=== PATIENT | male | born 1940 | race Caucasian/White ===

== ENCOUNTER 2023-11-28 19:40 | Emergency (ER) | payer OTHER ==
[~2023-11-28] VITALS: Ht 180.3 cm; Wt 87.2 kg
[~2023-11-28 19:40] MED LIST: CARBIDOPA-LEVO1 EAC5 PO
--- OUTSIDE RECORDS SUMMARY | 2023-11-28 19:44 | XMS ---
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 Ehsan has no Care Guidelines for this patient. [facility]12 MO[facility] NOTE: Visits indicate total known visits. ED/C VISIT TRACKING (12 MO.) 11/28/2023 19:[address] [facility] [place] TYPE: Emergency COMPLAINT: - DIZZINESS 11/25/2023 18:[address] [facility] [place] TYPE: Emergency COMPLAINT: - WEAKNESS DIAGNOSES: - Homelessness unspecified - Other care home (current) drug therapy - Parkinson's disease without dyskinesia, without mention of fluctuations - Weakness INPATIENT VISIT TRACKING (12 MO.) No inpatient visits to display in this time frame [id number]
[2023-11-28 19:54] LABS: BASOPHILS 0.9 % (0-2); EOSINOPHILS 5.1 % (0-6); HEMATOCRIT 40.3 % (35.0-50.0); HEMOGLOBIN 13.2 g/dL (12.0-18.0); LYMPHOCYTES 31.4 % (24-44); MCH 30.1 (27-36); MCHC 32.7 g/dl (30-36); MCV 91.9 fl (81-99); NEUTROPHILS 53.6 % (39-80); PLATELET COUNT 226 K/uL (140-440); RBC 4.38 M/ul (4.3-5.7); RDW 14.9 (10.5-15.0)
[2023-11-28 20:13] LABS: ALBUMIN 3.5 g/dL (3.4-5.0); ALBUMIN/GLOBULIN RATIO 0.92 (1.1-2.4); BUN/CREATININE RATIO 20.83 (6.0-28.6); CALCIUM 8.5 mg/dL (8.5-10.1); CREATININE, SERUM 0.96 mg/dL (0.70-1.30); PROTEIN, TOTAL 7.3 g/dL (6.4-8.2)
[2023-11-28 21:49] LABS: BILIRUBIN, URINE NEGATIVE (negative); BLOOD/HGB, URINE NEGATIVE (Negative); KETONE, URINE NEGATIVE (Negative); LEUK ESTERASE, URINE NEGATIVE (negative); NITRITE, URINE NEGATIVE (negative)
[2023-11-28 22:07] VITALS: BP 152/64
--- NOTE | 2023-11-29 21:17 | EKG ---
[facility] [address] [place] [address] Signed Normal sinus rhythm Normal ECG When compared with ECG of 25-NOV-2023 19:38, No significant change was found Confirmed by Napoleon Ott MD () on 11/29/2023 9:17:19 PM Electronically Signed By: NAPOLEON OTT MD 11/29/232116 PATIENT NAME: SABA DE LA O Electrocardiogram DATE OF : 40 PHYSICIAN: NAPOLEON OTT MD REPORT #: [id number] REPORT IS CONFIDENTIAL AND NOT TO BE RELEASED WITHOUT AUTHORIZATION
[2023-11-30] MEDS ORDERED: PERCOCET 5-3251 EACH PO (09:42)
[2023-11-30] MEDS ORDERED: LIDODERM1 EACH TOP (09:42)
[2023-11-30] MEDS ORDERED: ONDANSETRON ODT8 MG PO (09:42)
[2023-11-30] MEDS ORDERED: SENNA8.6 MG PO (09:42)
== END 2023-11-28 23:56 | disposition home or self-care (01) ==
LOC: ED 19:40
PROVIDERS: Family Medicine
DX: R53.1 Weakness (principal); G20.A1 Parkinson's disease without dyskinesia, without mention of fluctuations; F02.80 Dementia in other diseases classified elsewhere, unspecified severity, without behavioral disturbance, psychotic disturbance, mood disturbance, and anxiety; R42 Dizziness and giddiness; Z79.899 Other long term (current) drug therapy
CPT/HCPCS: 36415; 70450; 80053; 81003; 84484; 85025; 93005; 93010; 99284

== ENCOUNTER 2023-12-25 01:31 | Emergency (ER) | payer OTHER, MEDICARE, MEDICAID ==
[~2023-12-25] VITALS: Ht 180.3 cm; Wt 90.0 kg
[~2023-12-25 01:31] MED LIST changes: +LIDODERM1 EACH TOP; +ONDANSETRON ODT8 MG PO; +PERCOCET 5-3251 EACH PO; +SENNA8.6 MG PO
--- OUTSIDE RECORDS SUMMARY | 2023-12-25 01:33 | XMS ---
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 Ehsan has no Care Guidelines for this patient. [facility] MO[facility] T[facility] 4 NOTE: Visits indicate total known visits. ED/C VISIT TRACKING (12 MO.) 12/25/2023 01:[address] [facility] [place] TYPE: Emergency COMPLAINT: - FALL 11/30/2023 08:26 [facility] [place] TYPE: [facility] COMPLAINT: - FALL DIAGNOSES: - Fracture of one rib, left side, initial encounter for closed fracture - Parkinson's disease without dyskinesia, without mention of fluctuations - Pleurodynia - Unspecified fall, initial encounter 11/28/2023 19:40 [facility] [place] TYPE: Emergency COMPLAINT: - DIZZINESS DIAGNOSES: - Dementia in other diseases classified elsewhere, unspecified severity, without behavioral disturbance, psychotic disturbance, mood disturbance, and anxiety - Dizziness and giddiness - 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
[2023-12-25 02:03] LABS: RBC 4.44 M/ul (4.3-5.7)
[2023-12-25 02:05] LABS: EOSINOPHILS 3.1 % (0-6); HEMATOCRIT 40.7 % (35.0-50.0); HEMOGLOBIN 13.5 g/dL (12.0-18.0); LYMPHOCYTES 29.3 % (24-44); MCH 30.3 (27-36); MCHC 33.1 g/dl (30-36); MCV 91.5 fl (81-99); MONOCYTES 10.1 % (0-12); NEUTROPHILS 56.5 % (39-80); PLATELET COUNT 222 K/uL (140-440); RDW 14.3 (10.5-15.0)
[2023-12-25 02:17] LABS: ALBUMIN 3.8 g/dL (3.4-5.0); BILIRUBIN, TOTAL 0.8 ng/dL (0.2-1.0); BUN/CREATININE RATIO 20.47 (6.0-28.6); CALCIUM 9.2 mg/dL (8.5-10.1); CREATININE, SERUM 1.27 mg/dL (0.70-1.30); PROTEIN, TOTAL 7.6 g/dL (6.4-8.2)
[2023-12-25] MEDS ORDERED: TRAMADOL HCL50 MG PO (03:35)
[2023-12-25] MEDS ORDERED: TRAMADOL HCL 50 MG HOME.PACK PO ONE (03:45)
[2023-12-25 07:39] VITALS: BP 111/85
== END 2023-12-25 07:36 | disposition home or self-care (01) ==
LOC: ED 01:31
PROVIDERS: Family Medicine
DX: S70.01XA Contusion of right hip, initial encounter (principal); W19.XXXA Unspecified fall, initial encounter; G20.A1 Parkinson's disease without dyskinesia, without mention of fluctuations; Z59.02 Unsheltered homelessness; Z79.899 Other long term (current) drug therapy
CPT/HCPCS: 36415; 72131; 74177; 80048; 80053; 85025; 99284-25; A9270; Q9967

== ENCOUNTER 2024-06-28 18:25 | Emergency (ER) | payer OTHER, MEDICAID ==
[~2024-06-28] VITALS: Ht 180.3 cm; Wt 95.7 kg
[~2024-06-28 18:25] MED LIST changes: +TRAMADOL HCL50 MG PO
--- OUTSIDE RECORDS SUMMARY | 2024-06-28 18:32 | XMS ---
PreManage Notification: SABA DE LA O Security Scoop Filler Events No recent Security Events currently on file CRITERIA MET - 6 ED Visits in 6 Months - [facility] - 2 Visits in 30 Days - [facility] - 3 Facilities in 90 Days CARE PROVIDERS ARMIN BRAGG Current PHONE: [phone] Care Guidelines exist for the following facilities: [facility] ( 01/03/2022 ) Max VISIT COUNT (12 MO.) 18 [facility] ([place]) 5 [facility] 2 [facility] and [facility] 1 [facility] 1 [facility]. 1 [facility]. TOTAL 28 NOTE: Visits indicate total known visits. ED/UCC VISIT TRACKING (12 MO.) 06/28/2024 18:25 [facility] [place] TYPE: Emergency COMPLAINT: - FALL 06/23/2024 20:54 [facility] TYPE: Emergency DIAGNOSES: - Contusion of left front wall of thorax, initial encounter - Unspecified fall, initial encounter - Unspecified sprain of right wrist, initial encounter - Fall 06/13/2024 11:28 [facility] [place] [facility] TYPE: Emergency DIAGNOSES: - Constipation, unspecified - Constipation 06/10/2024 22:43 [facility] [place] [place] ([facility] [place] TYPE: Emergency DIAGNOSES: - Gastro-esophageal reflux disease without esophagitis - Chest Pain - Gastroesophageal Reflux 06/05/2024 06:52 [facility] [place] ([place] TYPE: Emergency DIAGNOSES: - Gastro-esophageal reflux disease with esophagitis, without bleeding - Heartburn - Shortness of Breath 05/18/2024 00:25 [facility] [place] ([place] TYPE: Emergency DIAGNOSES: - Gastro-esophageal reflux disease without esophagitis - Chest Pain - indigestion/difficulty breathing 04/02/2024 19:55 [facility] TYPE: Emergency COMPLAINT: - TIPPED OVER MOTORIZED WHEELCHAIR DIAGNOSES: - Abrasion, left knee, initial encounter - Abrasion, right knee, initial encounter 01/23/2024 13:29 [facility] [place] ([place] TYPE: Emergency DIAGNOSES: - medication refill 01/20/2024 13:41 [facility] [place] ([place] TYPE: Emergency DIAGNOSES: - Paroxysmal atrial fibrillation - Strain of muscle, fascia and tendon at neck level, initial encounter - Unspecified fall, initial encounter - Fall 01/10/2024 14:28 [facility] [place] ([place]) TYPE: Emergency DIAGNOSES: - Pain in right hip - Unspecified fall, initial encounter - Fall 01/10/2024 05:13 [facility] [place] ([place] TYPE: Emergency DIAGNOSES: - Headache, unspecified - Headache - Headache (Adult - New Onset Or New Symptoms) 01/06/2024 17:21 [facility] [place] ([place]) TYPE: Emergency DIAGNOSES: - Pain in right shoulder - shoulder pain 12/30/2023 16:26 [facility] [place] ([place]) TYPE: Emergency DIAGNOSES: - Contusion of right knee, initial encounter - Fall on same level from slipping, tripping and stumbling without subsequent striking against object, initial encounter - Parkinson's disease with dyskinesia, with fluctuations - Strain of muscle, fascia and tendon at neck level, initial encounter - Strain of muscle, fascia and tendon of lower back, initial encounter - Fall 12/25/2023 01:32 [facility] [place] TYPE: Emergency COMPLAINT: - FALL DIAGNOSES: - Contusion of right hip, initial encounter - 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 - Parkinson's disease without dyskinesia, without mention of fluctuations - Unsheltered homelessness - Unspecified fall, initial encounter 12/20/2023 22:34 [facility] [place] ([place] TYPE: Emergency DIAGNOSES: - Repeated falls - Repeated falls - Strain of muscle and tendon of unspecified wall of thorax, initial encounter - Strain of muscle, fascia and tendon at neck level, initial encounter - fall 12/19/2023 11:44 [facility] [place] ([place]) TYPE: Emergency DIAGNOSES: - Parkinson's disease without dyskinesia, without mention of fluctuations - weakness [facility]18[facility]23 [facility] [facility] [place]: Emergency DIAGNOSES: - Contusion of unspecified back wall of thorax, initial encounter - Fall on same level from slipping, tripping and stumbling without subsequent striking against object, initial encounter - Unspecified sprain of left wrist, initial encounter - Fall 12/07/2023 10:15 [facility] [facility] [place] TYPE: Emergency DIAGNOSES: - Pain in left shoulder - Unspecified fall, initial encounter - Arm Pain - Back Pain 11/30/2023 08:26 [facility] [place] TYPE: Emergency COMPLAINT: - FALL DIAGNOSES: - Fracture of one rib, left side, initial encounter for closed fracture - Parkinson's disease without dyskinesia, without mention of fluctuations - Pleurodynia - Unspecified fall, initial encounter 11/28/2023 19:[address] 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 - Atherosclerotic heart disease of [place] coronary artery without angina pectoris - Cerebral infarction due to embolism of right middle cerebral artery - Cerebral infarction, unspecified - Chronic obstructive pulmonary disease, unspecified - Dizziness and giddiness - Essential (primary) hypertension - Hyperlipidemia, unspecified - Other symptoms and signs involving the musculoskeletal system - Parkinson's disease with dyskinesia, with fluctuations - Paroxysmal atrial fibrillation - Polyneuropathy, unspecified [email or web address]
[2024-06-28] MEDS ORDERED: SUCRALFATE1 GM PO (19:23)
[2024-06-28] MEDS ORDERED: HYDROCODON-ACE1 EA10 PO (19:23)
[2024-06-28] MEDS ORDERED: PANTOPRAZOLE SO40 MG PO (19:23)
[2024-06-28 22:34] LABS: BASOPHILS 1.1 % (0-2); EOSINOPHILS 3.8 % (0-6); HEMATOCRIT 39.2 % (35.0-50.0); HEMOGLOBIN 13.2 g/dL (12.0-18.0); MCHC 33.7 g/dl (30-36); MCV 92.2 fl (81-99); MONOCYTES 10.1 % (0-12); PLATELET COUNT 239 K/uL (140-440); RBC 4.25 M/ul (4.3-5.7); RDW 13.5 (10.5-15.0)
[2024-06-28 22:52] LABS: ALBUMIN 3.3 g/dL (3.4-5.0); ALBUMIN/GLOBULIN RATIO 0.94 (1.1-2.4); ANION GAP 11.8 (7-21); BILIRUBIN, TOTAL 0.7 ng/dL (0.2-1.0); BUN/CREATININE RATIO 13.72 (6.0-28.6); CALCIUM 8.6 mg/dL (8.5-10.1); CREATININE, SERUM 1.02 mg/dL (0.70-1.30); POTASSIUM 3.8 mmol/L (3.5-5.1); PROTEIN, TOTAL 6.8 g/dL (6.4-8.2)
[2024-06-29] MEDS ORDERED: Methylnaltrexone Bromide 12 MG/0.6 ML VIAL SUB-Q ONE (05:45)
[2024-06-29 09:50] VITALS: BP 98/62
--- NOTE | 2024-07-01 17:06 | EKG ---
[facility] [address] [place] [address] Signed Normal sinus rhythm Nonspecific ST abnormality Abnormal ECG When compared with ECG of 28-NOV-2023 19:47, No significant change was found Confirmed by Meghan Esparza DO ([id number]) on 07/01/2024 5:06:17 PM Electronically Signed By: MEGHAN ESPARZA DO 07/01/24 1706 PATIENT NAME: SABA DE LA O Electrocardiogram DATE OF : 40 PHYSICIAN: MEGHAN ESPARZA DO REPORT #: [id number] REPORT IS CONFIDENTIAL AND NOT TO BE RELEASED WITHOUT AUTHORIZATION
== END 2024-06-29 09:50 | disposition home or self-care (01) ==
LOC: ED 18:25
PROVIDERS: Emergency Medicine
DX: S80.12XA Contusion of left lower leg, initial encounter (principal); S70.01XA Contusion of right hip, initial encounter; R07.9 Chest pain, unspecified; W05.0XXA Fall from non-moving wheelchair, initial encounter; Z91.81 History of falling; G20.A1 Parkinson's disease without dyskinesia, without mention of fluctuations; Z79.899 Other long term (current) drug therapy
CPT/HCPCS: 36415; 73502; 73590; 80053; 84484; 85025; 93005; 93010; 96372; 99284; J2212